=== PATIENT | male | born 1975 | race Caucasian/White ===

== ENCOUNTER 2018-11-12 10:53 | Emergency (ER) | END 2018-11-12 12:36 | disposition left against medical advice (07) | LOC: ER 10:53 | DX: Z53.21 Procedure and treatment not carried out due to patient leaving prior to being seen by health care provider (principal) ==

== ENCOUNTER 2018-12-06 08:40 | Emergency (ER) | payer SELFPAY ==
[2018-12-06] MEDS ORDERED: DIPHENHYDRAMINE HCL 50 MG/ML VIAL IV ONE (10:08)
[2018-12-06] MEDS ORDERED: KETOROLAC TROMETHAMINE INJ/PF 30 MG/1 ML SDV IV ONE (10:08)
[2018-12-06] MEDS ORDERED: PROCHLORPERAZINE EDISYLATE INJ 10 MG/2 ML VIAL IV ONE (10:08)
--- NOTE | 2018-12-06 10:09 | ER Document Report ---
ED Medical Screen (RME) - General Chief Complaint: Headache Stated Complaint: MIGRAINE Time Seen by Provider: 12/06/18 10:05 Mode of Arrival: Ambulatory Information source: Patient Notes: Patient complains of right sided headache pain with nausea and light sensitivity. Patient has a history of migraines that he gets about monthly and states this is typical of his usual migraines. Patient denies any new injury. Patient reports nausea without emesis. I have greeted and performed a rapid initial assessment of this patient. A comprehensive ED assessment and evaluation of the patient, analysis of test results and completion of the medical decision making process will be conducted by additional ED providers. TRAVEL OUTSIDE OF THE [place] IN LAST 30 DAYS: No - Related Data Allergies/Adverse Reactions: No Known Allergies Allergy (Verified 11/12/18 10:54) Past Medical History - Social History Chew tobacco use (# tins/day): No Frequency of alcohol use: Occasional Drug Abuse: None - Past Medical History Cardiac Medical History: Reports: Hx Hypertension Past Surgical History: Reports: Hx Oral Surgery - [place] teeth Physical Exam - Vital signs Vitals: Temp Pulse Resp BP Pulse Ox 97.9 F 82 16 152/98 H 97 12/06/18 08:47 12/06/18 08:47 12/06/18 08:47 12/06/18 08:47 12/06/18 08:47 - Neurological Neuro grossly intact: Yes Cognition: Normal Jl Coma Scale Eye Opening: Spontaneous [place] Coma Scale Verbal: Oriented Jl Coma Scale Motor: Obeys Commands Jl Coma Scale Total: 15 Course - Vital Signs Vital signs: Temp Pulse Resp BP Pulse Ox 97.9 F 82 16 152/98 H 97 12/06/18 08:47 12/06/18 08:47 12/06/18 08:47 12/06/18 08:47 12/06/18 08:47
[2018-12-06] MEDS ORDERED: DEXAMETHASONE SOD PHOS INJ 10 MG/1 ML VIAL IV ONE (11:36)
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
[2018-12-06 12:22] VITALS: BP 149/97
== END 2018-12-06 12:22 | disposition home or self-care (01) ==
LOC: ER 08:40
DX: I10 Essential (primary) hypertension (principal); R51 Headache; F17.200 Nicotine dependence, unspecified, uncomplicated
CPT/HCPCS: J1200; J1885; J0780; J1100; 96374; 96375; 99283

== ENCOUNTER 2019-11-10 14:31 | Emergency (ER) | payer SELFPAY ==
--- NOTE | 2019-11-10 15:19 | ER Document Report ---
HPI - HPI Patient complains to provider of: Ankle pain Time Seen by Provider: 11/10/19 15:11 Notes: 24-year-old male to the emergency department with complaints of left ankle pain that began in May and has persisted. He states in May he fell through a bridge and had an open ankle fracture[place] by the Ortho trauma specialist there. He states he saw the Ortho trauma group twice in June and was supposed to be going to physical therapy but could not afford to pay for the physical therapy. He states he was given exercises and sent home. He states since then he has pain in the ankle daily. He takes usually ibuprofen. He has not seen an orthopedist since. He denies any new injuries. He states he walks with a limp. He denies any fevers or chills. Denies any streaking redness of the ankle. - ROS Systems Reviewed and Negative: Yes All other systems reviewed and negative - CONSTITUTIONAL Constitutional: DENIES: Fever, Chills - EENT EENT: DENIES: Sore Throat - NEURO Neurology: DENIES: Headache - CARDIOVASCULAR Cardiovascular: DENIES: Chest pain - RESPIRATORY Respiratory: DENIES: Trouble Breathing, Coughing - GASTROINTESTINAL Gastrointestinal: DENIES: Abdominal Pain, Nausea, Patient vomiting, Diarrhea - URINARY Urinary: DENIES: Dysuria - MUSCULOSKELETAL Musculoskeletal: REPORTS: Extremity pain Notes: Left ankle pain - DERM Skin Color: Normal Past Medical History - General Information source: Patient - Social History Smoking Status: Current Every Day Smoker Frequency of alcohol use: None Drug Abuse: None Family History: None, Reviewed & Not Pertinent - Past Medical History Cardiac Medical History: Reports: Hx Hypertension Past Surgical History: Reports: Hx Oral Surgery - [place] teeth Vertical Provider Document - CONSTITUTIONAL Agree With Documented VS: Yes Exam Limitations: No Limitations General Appearance: WD/WN - INFECTION CONTROL TRAVEL OUTSIDE OF THE [place] IN LAST 30 DAYS: No - HEENT HEENT: Atraumatic, Normal ENT Exam, PERRLA - NECK Neck: Normal Inspection, Supple - RESPIRATORY Respiratory: Breath Sounds Normal, No Respiratory Distress. negative: Rales, Rhonchi, Wheezing - CARDIOVASCULAR Cardiovascular: Regular Rate, Regular Rhythm, No Murmur - GI/ABDOMEN Gastrointestinal: Abdomen Soft, Abdomen Non-Tender - BACK Back: Normal Inspection - MUSCULOSKELETAL/EXTREMETIES Notes: Patient walks with a limp to the left ankle. There is noted healed surgical scars on bilateral malleoli. There is no evidence for edema, warmth, wound dehiscence, infection to the incision sites. DP pulses are intact and equal. Patient has 5 out of 5 strength and dorsi flexion and plantar flexion although his range of movement is mildly decreased since he has had his surgery. No tenderness to palpation over the left knee or hip. Cap refill in all toes is less than 2 seconds. Course - Re-evaluation Re-evalutation: 11/10/19 16:32 Impression: Chronic left ankle pain. Suspect that patient will have some sort of chronic left ankle pain since he had such a significant injury to the ankle. We did obtain an x-ray to evaluate for any possible hardware abnormalities. Hard well is intact. Will send home with prescription for meloxicam and will have him follow-up with orthopedist. - Vital Signs Vital signs: Temp Pulse Resp BP Pulse Ox 98.2 F 107 H 16 158/115 H 98 11/10/19 14:36 11/10/19 14:36 11/10/19 14:36 11/10/19 14:36 11/10/19 14:36 - Diagnostic Test Radiology reviewed: Image reviewed, Reports reviewed Discharge - Discharge Clinical Impression: Chronic pain of left ankle Condition: Stable Disposition: HOME, SELF-CARE Instructions: Antony Wrap ([facility]) Additional Instructions: Follow-up with orthopedist listed without fail. Wear Antony wrap for support. Ice the ankle and elevate it. Take medicine as prescribed. Prescriptions: Meloxicam [Mobic] 7.5 mg PO DAILY #30 tablet Referrals: TRACY NOVA JR, DO [ACTIVE PROVISIONAL STAFF] - Follow up in 1 week (for orthopedic follow up)
--- NOTE | 2019-11-10 16:02 | RADIOLOGY REPORT (SQ) ---
EXAM DESCRIPTION: ANKLE LEFT COMPLETE IMAGES COMPLETED DATE/TIME: 11/10/2019 3:29 pm REASON FOR STUDY: ankle pain COMPARISON: None. NUMBER OF VIEWS: Three views. TECHNIQUE: AP, lateral, and oblique radiographic images acquired of the left ankle. LIMITATIONS: None. FINDINGS: MINERALIZATION: Osteopenia. BONES: Postsurgical changes with internal fixation of the distal fibula and tibia. JOINTS: Degenerative changes in the tibiotalar joint. SOFT TISSUES: Soft tissue edema. OTHER: No other significant finding. IMPRESSION: Postsurgical and degenerative changes. No acute fracture or or dislocation. There is s oft tissue edema. TECHNICAL DOCUMENTATION: JOB ID: [id number] [employer]- All Rights Reserved Reading location - IP/workstation name: [email or web address]
[2019-11-10 16:51] VITALS: BP 175/107
== END 2019-11-10 16:50 | disposition home or self-care (01) ==
LOC: ER 14:31
DX: G89.29 Other chronic pain (principal); M25.572 Pain in left ankle and joints of left foot; F17.200 Nicotine dependence, unspecified, uncomplicated; I10 Essential (primary) hypertension
CPT/HCPCS: 99283